=== PATIENT | female | born 1940 | race Caucasian/White ===

== ENCOUNTER 2017-01-27 07:43 | Observation (INO) | payer OTHER, MEDICARE ==
[2017-01-27] MEDS ORDERED: NS 1,000 ML IV ONE (07:51)
--- NOTE | 2017-01-27 07:53 | EDPHY ---
H & P Stated Complaint: Bloody diarrhea Time Seen by Provider: 01/27/17 07:53 HPI/ROS: CHIEF COMPLAINT: Hematochezia HISTORY OF PRESENT ILLNESS: The patient presents to the emergency department with hematochezia. She has had some diarrhea over the past several days. She initially had mild hematochezia now has progressed to more significant hematochezia. She has mild lightheadedness. She has complaints of mild abdominal cramping but no significant complaints of pain. The patient reports her last colonoscopy was in September of 2015 and reportedly normal. The patient does not take any anticoagulants. She had been on aspirin but stop taking that several days ago and anticipation of knee surgery next week. REVIEW OF SYSTEMS: A comprehensive 10 point review of systems is otherwise negative aside from elements mentioned in the history of present illness. Source: Patient Exam Limitations: No limitations - Personal History Current Tetanus/Diphtheria Vaccine: No Current Tetanus Diphtheria and Acellular Pertussis (TDAP): No - Medical/Surgical History Hx Asthma: No Hx Chronic Respiratory Disease: No Hx Diabetes: No Hx Cardiac Disease: No Hx Renal Disease: No Hx Cirrhosis: No Hx Alcoholism: No Hx HIV/AIDS: No Hx Splenectomy or Spleen Trauma: No Other PMH: HRT - Social History Smoking Status: Never smoked - Physical Exam Exam: General Appearance: Alert, no distress Eyes: Pupils equal and round no pallor or injection ENT, Mouth: Mucous membranes moist Respiratory: There are no retractions, lungs are clear to auscultation Cardiovascular: Regular rate and rhythm Gastrointestinal: Abdomen is soft and nontender, no masses, bowel sounds normal Neurological: A&O, normal motor function, normal sensory exam, normal cranial nerves Skin: Warm and dry, no rashes Musculoskeletal: Neck is supple nontender Extremities: symmetrical, full range of motion Constitutional: Initial Vital Signs Temperature (C) 36.9 C 01/27/17 07:45 Heart Rate 106 H 01/27/17 07:45 Respiratory Rate 20 01/27/17 07:45 Blood Pressure 120/71 01/27/17 07:45 O2 Sat (%) 93 01/27/17 07:45 O2 Delivery Mode Room Air Allergies/Adverse Reactions: No Known Allergies Allergy (Unverified 01/27/17 07:47) Medical Decision Making ED Course/Re-evaluation: The patient presents the emergency department with hematochezia increasing over the past day. She is noted to be hemodynamically stable upon arrival. The patient's initial hematocrit is noted to be normal. The patient has no abdominal tenderness. I do not feel that a CT scan of the abdomen and pelvis with the helpful. I have ordered a stool PCR assay for further evaluation of her diarrhea and hematochezia. The patient has been typed and screened. I discussed the case with Dr. Mitchel Hernandez from Gastroenterology who will see the patient in consultation. Consultation is made with Dr. Gamble from Internal Medicine. She will admit the patient to the hospital. The patient was re-evaluated by myself at 9:30 a.m.. She continues to be hemodynamically stable. She is not had significant bright red blood per rectum while in the emergency department. Differential Diagnosis: Differential diagnosis considered includes upper GI bleed, lower GI bleed, diverticulitis, bleeding AVM, inflammatory bowel disease - Data Points Laboratory Results: Laboratory Results 01/27/17 08:00 01/27/17 08:00 01/27/17 01/27/17 01/27/17 08:00 08:00 08:00 WBC RBC Hgb Hct MCV MCH MCHC RDW Plt Count MPV Neut % (Auto) Lymph % (Auto) [place] % (Auto) Eos % (Auto) Baso % (Auto) Nucleat RBC Rel Count Absolute Neuts (auto) Absolute Lymphs (auto) Absolute Monos (auto) Absolute Eos (auto) Absolute Basos (auto) Absolute Nucleated RBC Immature Gran % Immature Gran # PT 12.3 SEC SEC (12.0-15.0) INR 0.92 (0.83-1.16) APTT 22.2 SEC L SEC (23.0-38.0) Sodium 142 mEq/L mEq/L (134-144) Potassium 4.3 mEq/L mEq/L (3.5-5.2) Chloride 107 mEq/L mEq/L (97-110) Carbon Dioxide 26 mEq/l mEq/l (22-31) Anion Gap 9 mEq/L mEq/L (8-16) BUN 14 mg/dL mg/dL (7-23) Creatinine 1.0 mg/dL mg/dL (0.6-1.0) Estimated GFR 54 Glucose 111 mg/dL H mg/dL (70-100) Calcium 9.2 mg/dL mg/dL (8.5-10.4) Patient ABO/Rh B NEGATIVE Antibody Screen NEGATIVE 01/27/17 08:00 WBC 12.18 10^3/uL H 10^3/uL (3.80-9.50) RBC 4.33 10^6/uL 10^6/uL (4.18-5.33) Hgb 13.5 g/dL g/dL (12.6-16.3) Hct 40.1 % % (38.0-47.0) MCV 92.6 fL fL (81.5-99.8) MCH 31.2 pg pg (27.9-34.1) MCHC 33.7 g/dL g/dL (32.4-36.7) RDW 13.1 % % (11.5-15.2) Plt Count 316 10^3/uL 10^3/uL (150-400) MPV 10.0 fL fL (8.7-11.7) Neut % (Auto) 74.3 % H % (39.3-74.2) Lymph % (Auto) 20.3 % % (15.0-45.0) [place] % (Auto) 4.3 % L % (4.5-13.0) Eos % (Auto) 0.6 % % (0.6-7.6) Baso % (Auto) 0.2 % L % (0.3-1.7) Nucleat RBC Rel Count 0.0 % % (0.0-0.2) Absolute Neuts (auto) 9.05 10^3/uL H 10^3/uL (1.70-6.50) Absolute Lymphs (auto) 2.47 10^3/uL 10^3/uL (1.00-3.00) Absolute Monos (auto) 0.52 10^3/uL 10^3/uL (0.30-0.80) Absolute Eos (auto) 0.07 10^3/uL 10^3/uL (0.03-0.40) Absolute Basos (auto) 0.03 10^3/uL 10^3/uL (0.02-0.10) Absolute Nucleated RBC 0.00 10^3/uL 10^3/uL (0-0.01) Immature Gran % 0.3 % % (0.0-1.1) Immature Gran # 0.04 10^3/uL 10^3/uL (0.00-0.10) PT INR APTT Sodium Potassium Chloride Carbon Dioxide Anion Gap BUN Creatinine Estimated GFR Glucose Calcium Patient ABO/Rh Antibody Screen Medications Given: Discontinued Medications Sodium Chloride (Ns) 1,000 mls @ 0 mls/hr IV ONCE ONE PRN Reason: Wide Open Stop: 01/27/17 07:52 Last Admin: 01/27/17 07:59 Dose: 1,000 mls Departure - Departure Disposition: [facility] Inpatient Acute Clinical Impression: Hematochezia, Diarrhea Condition: Good
[2017-01-27 08:10] LABS: % IMMATURE GRANULYOCYTES 0.3 % (0.0-1.1); ABSOLUTE IMMATURE GRANULOCYTES 0.04 10^3/uL (0.00-0.10); ADD DIFF? NO; ADD MORPH? NO; ADD SCAN? NO; ATYPICAL LYMPHOCYTE FLAG 0 (0-99); FRAGMENT RBC FLAG 0 (0-99); HEMATOCRIT 40.1 % (38.0-47.0); HEMOGLOBIN 13.5 g/dL (12.6-16.3); LEFT SHIFT FLG 10 (0-99); LIPEMIA HEMOLYSIS FLAG 80 (0-99); MEAN CELL HEMOGLOBIN 31.2 pg (27.9-34.1); MEAN CELL HEMOGLOBIN CONCENTR. 33.7 g/dL (32.4-36.7); MEAN CELL VOLUME 92.6 fL (81.5-99.8); PLATELET CLUMPS FLAG 0 (0-99); PLATELET COUNT 316 10^3/uL (150-400); RED BLOOD CELL COUNT 4.33 10^6/uL (4.18-5.33); RED CELL DISTRIBUTION WIDTH 13.1 % (11.5-15.2)
[2017-01-27 08:22] LABS: INR 0.92 (0.83-1.16); PROTIME(PATIENT) 12.3 SEC (12.0-15.0)
[2017-01-27 08:23] LABS: APTT 22.2 SEC (23.0-38.0)
[2017-01-27] MEDS ORDERED: ACETAMINOPHEN 325 MG TAB PO PRN (08:28)
[2017-01-27] MEDS ORDERED: ONDANSETRON 4 MG/2 ML VIAL IVP PRN (08:28)
[2017-01-27] MEDS ORDERED: ONDANSETRON DISINTEGRATING 4 MG TAB PO PRN (08:28)
[2017-01-27 08:32] LABS: ANION GAP 9 mEq/L (8-16); CALCIUM 9.2 mg/dL (8.5-10.4); CARBON DIOXIDE 26 mEq/l (22-31); CHLORIDE 107 mEq/L (97-110); GLOMERULAR FILTRATION RATE 54; GLUCOSE 111 mg/dL (70-100); POTASSIUM 4.3 mEq/L (3.5-5.2); SODIUM 142 mEq/L (134-144)
[2017-01-27] MEDS ORDERED: BISMUTH SUBSALICYLATE 524 MG/30 ML UDL PO PRN (10:45)
[2017-01-27] MEDS: D5W 1/2 NS W/ 20 KCl/L 1,000 ML IV SCH ×2 (11:42→20:20)
--- NOTE | 2017-01-27 12:28 | GHP ---
[f rep st] HISTORY AND PHYSICAL DATE OF ADMISSION: 01/27/2017 CHIEF COMPLAINT: Hematochezia. HISTORY OF PRESENT ILLNESS: Patient is a pleasant 76-year-old female with no significant past medical history, presenting with hematochezia that started yesterday at approximately 3 p.m. Prior to the episode she had severe abdominal cramps and diffuse cold sweats. She then had approximately 3 bloody stools yesterday afternoon, and then 3 overnight. She denies fevers. Mild dizziness. No chest pain, shortness of breath. Yesterday for lunch she prepared a BLT and potato salad. Day prior she had cruz chops. Has not gone out to eat. No recent travel. Reports normal colonoscopy in September 2015. REVIEW OF SYSTEMS: I completed a 10-point review of systems. Negative except as noted in HPI. PAST MEDICAL HISTORY: None. PAST SURGICAL HISTORY: 1. Breast lumpectomy. 2. Shoulder surgery in 2013. 3. Biceps tendon surgery. 4. Hysterectomy. SOCIAL HISTORY: Lives in [place] with her . 54 years. No alcohol, tobacco or illicits. Has 2 daughters, 5 grandchildren. FAMILY HISTORY: Mother with ovarian cancer. MEDICATIONS: Premarin cream. ALLERGIES: Next no known drug allergies. PHYSICAL EXAM: VITAL SIGNS: Temperature 37.1, blood pressure 112/72, heart rate 90, respirations 16, 97% on room air. GENERAL: Lying in bed, no acute distress, smiling. HEENT: PERRLA. EOMI. Moist mucous membranes. CV: Regular rate and rhythm. No murmurs, gallops, or rubs. LUNGS: Clear to auscultation bilaterally. ABDOMEN: Soft. Mild left lower quadrant tenderness to palpation. Positive bowel sounds. : No suprapubic tenderness. MUSCULOSKELETAL: 5/5 upper, lower extremity strength. NEURO: 2 through 12 intact. PSYCH: Alert and oriented x3. Pleasant. LABS: WBC is 12, hemoglobin 13, hematocrit 40, platelets 316. Coags within normal. Sodium 142, potassium 4.3, chloride 107, carbon dioxide 26, creatinine 1, glucose 111, calcium 9.2. ASSESSMENT/PLAN: 1. Hematochezia: Differential includes gastroenteritis versus inflammatory bowel disease versus diverticulosis. We will check GI pathogen PCR. Appreciate Dr. Hernandez's consultation. Had a normal colonoscopy in September 2015. Will monitor with serial H and H. Ensure 2 IVs. Typed and screened. IV fluids and a clear diet. 2. Leukocytosis, mild. Could be stress given acute bleed versus infectious. Dr. Hernandez did start ciprofloxacin. Will await stool studies. 3. Diet: Clears. 4. Deep venous thrombosis prophylaxis: Ambulatory. 5. Disposition: Patient warrants observation admission, given acute hematochezia warranting serial H and H and stool studies. /[id number]/MODL MTDD
--- NOTE | 2017-01-27 13:08 | GCON ---
[f rep st] CONSULTATION GI INPATIENT CONSULTATION DATE OF CONSULTATION: 01/27/2017 I was kindly requested to see the patient by Dr. Trang Gamble in consultation for a chief complaint of bright-red blood per rectum. She is a 76-year-old white female, who was in her usual state of health until yesterday after lunch. She had lunch with her , and they both ate roughly the same things. She had a BLT sandwich and some potato salad. One hour after, she developed bilateral lower quadrant crampy abdominal pain with vomiting, diarrhea, and a "cold sweat." The diarrhea continued, and during the night became bloody. She denies a past history of the above. She did have a colonoscopy in September of last year with Dr. Medell[place] in [place]. That procedure was normal, except for some small internal hemorrhoids. She denies any new medications before the above. She denies any antibiotics before the above. She does use some ibuprofen and preventative aspirin at night , but has done this for many years. She actually recently stopped these for upcoming knee surgery. PAST MEDICAL HISTORY: 1. As above. 2. Otherwise, noncontributory. ALLERGIES: No known drug allergies. MEDICATIONS: Outpatient medications include the above. SOCIAL HISTORY: She is . Her 's name is Harjeet, mobile number . FAMILY HISTORY: Negative for similar bloody diarrhea. REVIEW OF SYSTEMS: Positive pertinent review of systems as per my HPI. Otherwise, complete review of systems is negative. PHYSICAL EXAM: CONSTITUTIONAL: Nontoxic-appearing, pleasant woman. SKIN: Warm, dry. EYES: Pupils equal, round, reactive to light and accommodation. Ears, nose, mouth, and throat: Moist mucosa. No masses seen. CARDIOVASCULAR: Normal S2. Normal PMI. RESPIRATORY: Lungs clear to auscultation and percussion anteriorly. GASTROINTESTINAL: Abdomen nontender. No masses felt. NEUROLOGIC: Grossly nonfocal. Cranial nerves grossly intact. PSYCHIATRIC: Orientation, insight appropriate. MUSCULOSKELETAL: Strength grossly normal throughout. Normal station. LABORATORIES: Include a mildly-elevated white count of 12,000. Hematocrit normal at 40.1%. Normal platelet count. Normal chemistry. Normal basic metabolic panel. Normal coags. ASSESSMENT: Acute lower bilateral crampy abdominal pain, with diarrhea, bright- red blood per rectum. This almost certainly represents a bacterial gastroenteritis. Whether this is from a community organism, such as shigella, salmonella, campylobacter, or E coli O157, or due to food poisoning is hard to say. Ischemic colitis is possible, but somewhat less likely with her crampy abdominal pain being bilateral. Other possibilities are very unlikely, with her having an unremarkable colonoscopy just 16 months ago. PLAN: 1. GI-pathogen stool study pending, but doubt will slubber frame changer. 2. Cipro 500 mg twice a day for 5 days. 3. IV fluids. 4. Clear liquids. Will advance her diet as tolerated. 5. Kaopectate or Pepto-Bismol as needed for diarrhea. 6. I suspect the above will resolve with time. She might very well be okay to still have her knee surgery next Tuesday as planned. Thank you for allowing me to help in the management of patient. Copy requested to: Dr. Chem[facility] /[id number]/MODL MTDD
[2017-01-27 14:14] LABS: HEMATOCRIT 35.7 % (38.0-47.0)
[2017-01-27] MEDS: CIPROFLOXACIN 500 MG TAB PO SCH (20:20)
[2017-01-27 20:48] LABS: HEMATOCRIT 35.7 % (38.0-47.0); HEMOGLOBIN 12.1 g/dL (12.6-16.3)
[2017-01-27 20:50] VITALS: RESP 16
[2017-01-28 04:56] LABS: % IMMATURE GRANULYOCYTES 0.4 % (0.0-1.1); ABSOLUTE IMMATURE GRANULOCYTES 0.04 10^3/uL (0.00-0.10); ADD DIFF? NO; ATYPICAL LYMPHOCYTE FLAG 0 (0-99); PLATELET CLUMPS FLAG 0 (0-99)
[2017-01-28 07:30] VITALS: BP 112/68; PULSE 89; TEMP 98.5; O2SAT 91
[2017-01-28] MEDS: CIPROFLOXACIN 500 MG TAB PO SCH (08:48)
[2017-01-28 08:51] LABS: HEMATOCRIT 35.6 % (38.0-47.0); HEMOGLOBIN 12.1 g/dL (12.6-16.3)
[2017-01-28] MEDS ORDERED: MULTIVITAMINS 1 EACH TAB PO SCH (09:00)
--- NOTE | 2017-01-28 10:40 | SOAPPROG ---
SOAP Progress Note Assessment/Plan: Assessment/Plan: Acute bloody diarrhea. Improving. Suspect resolving bacterial gastroenteritis (vs. ischemic colitis). - ok to d/c home - would complete cipro bid for a total of a five day course - iron replacement therapy x 1 mo. - f/u prn Thanks! 01/28/17 10:38 Subjective: cc: blood per rectum Doing better today. About 3 -4 bloody bms since yesterday afternoon, but smaller in amount, with less blood. No further significant abdominal pain. Tolerating p.o. Ambulating without weakness. Objective: Vital Signs Temp Pulse Resp BP Pulse Ox 36.9 C 89 16 112/68 91 L 01/28/17 07:30 01/28/17 07:30 01/28/17 07:30 01/28/17 07:30 01/28/17 07:30 Laboratory Results 01/28/17 04:25 01/27/17 01/28/17 01/29/17 05:59 05:59 05:59 Intake Total 1350 Output Total 2050 Balance -700 PT 12.3 SEC (12.0-15.0) 01/27/17 08:00 INR 0.92 (0.83-1.16) 01/27/17 08:00 Physical Exam - Physical Exam General Appearance: WD/WN, alert, no apparent distress EENT: PERRL/EOMI, normal ENT inspection, pharynx normal, TMs normal Neck: non-tender, full range of motion, supple, normal inspection Respiratory: chest non-tender, lungs clear, normal breath sounds Cardiac/Chest: normal peripheral pulses, regular rate, rhythm Peripheral Pulses: 2+: carotid (R), carotid (L), femoral (R), femoral (L), dorsalis-pedis (R), dorsalis-pedis (L) Abdomen: normal bowel sounds, non-tender, soft Pelvic Exam: deferred Rectal: deferred Back: Normal inspection Skin: normal color, warm/dry Lymphatic: no adenopathy Extremities: normal range of motion, non-tender, normal inspection, normal capillary refill Neuro/Psych: no motor/sensory deficits, alert, normal mood/affect, oriented x 3 ICD10 Worksheet Patient Problems: Problems Problem Status Onset Diarrhea Acute Hematochezia Acute
--- NOTE | 2017-01-28 22:41 | GDS ---
[f rep st] DISCHARGE SUMMARY DISCHARGE DIAGNOSES: 1. Hematochezia. 2. Acute abdominal pain. 3. Acute blood loss anemia. CONSULTATIONS: Gastroenterology. BRIEF HISTORY OF PRESENT ILLNESS: The patient is a 76-year-old female, with no significant past medical history, presenting with hematochezia starting the day prior to admission. Prior to the episode she had severe abdominal cramping and diffuse cold sweats. She had approximately 3 bloody stools the day prior, and then 3 day of. Denies any fevers. Mild dizziness today. No chest pain or shortness of breath. Has not eaten out. Had a BLT and cruz chops the day prior. HOSPITAL COURSE BY PROBLEM: 1. Hematochezia: Differential includes gastroenteritis versus ischemic colitis. H and H remained stable here. She was evaluated by Gastroenterology. No intervention warranted. Had normal colonoscopy in September 2015. Will empirically treat with 5 days of ciprofloxacin. 2. Acute blood loss anemia. Again, secondary to #1. H and H were stable at discharge. Hemodynamically stable. Recommend iron supplementation. DISPOSITION: Patient is stable for discharge. NEW MEDICATIONS: Iron supplementation and Cipro. /[id number]/MODL MTDD
== END 2017-01-28 11:01 | disposition home or self-care (01) ==
LOC: INTOOBSV 08:28 → F3E 09:38
PROVIDERS: ADMIT Internal Medicine; ATTEND Internal Medicine
DX: K92.1 Melena (principal); D62 Acute posthemorrhagic anemia; Z80.41 Family history of malignant neoplasm of ovary
CPT/HCPCS: 99285; G0378